=== PATIENT | male | born 1990 | race African-American/Black ===

== ENCOUNTER 2016-09-11 11:54 | Emergency (ER) | payer OTHER ==
[2016-09-11] MEDS ORDERED: IBUPROFEN 800 MG TABLET PO ONE (13:26)
[2016-09-11] MEDS ORDERED: CHERRY SYRUP 10 ML UDC PO ONE (13:26)
[2016-09-11] MEDS ORDERED: DEXAMETHASONE 10 MG/ML VIAL ONE (13:26)
[2016-09-11] MEDS: DEXAMETHASONE 10 MG/ML VIAL PO STA (13:29)
[2016-09-11] MEDS: IBUPROFEN 800 MG TABLET PO STA (13:29)
== END 2016-09-11 13:37 | disposition home or self-care (01) ==
DX: J02.8 Acute pharyngitis due to other specified organisms (principal); J06.9 Acute upper respiratory infection, unspecified; B97.89 Other viral agents as the cause of diseases classified elsewhere
CPT/HCPCS: 87070; 87430; 99283; A9270

== ENCOUNTER 2017-04-20 08:31 | Day surgery (SDC) | payer OTHER ==
[2017-04-20] MEDS ORDERED: LACTATED RINGERS 1,000 ML IV ONE ×2 (09:16→13:40)
[2017-04-20] MEDS ORDERED: ACETAMINOPHEN 1,000 MG/100 ML 100 ML IV ONE ×2 (09:22→13:10)
[2017-04-20] MEDS ORDERED: ceFAZolin 2 GM/50 ML 2 GM/50 ML BAG IV ONE ×2 (09:23→13:10)
[2017-04-20] MEDS ORDERED: BUPIVACAINE 0.25% PF 30 ML VIAL SUBQ ONE ×2 (12:02)
[2017-04-20] MEDS ORDERED: ONDANSETRON 4 MG/2 ML VIAL IVP ONE (13:10)
[2017-04-20] MEDS ORDERED: PROPOFOL 200 MG/20 ML VIAL IVP ONE (13:10)
[2017-04-20] MEDS ORDERED: METOCLOPRAMIDE 10 MG/2 ML VIAL IVP ONE (13:10)
[2017-04-20] MEDS ORDERED: DEXAMETHASONE 4 MG/ML VIAL IVP ONE (13:10)
[2017-04-20] MEDS ORDERED: KETOROLAC 30 MG/ML VIAL IVP ONE (13:10)
[2017-04-20] MEDS ORDERED: fentaNYL 100 MCG/2 ML VIAL IVP ONE (13:10)
[2017-04-20] MEDS ORDERED: LIDOCAINE-MPF 2% 5 ML VIAL IM ONE (13:10)
[2017-04-20] MEDS: fentaNYL 100 MCG/2 ML VIAL ONE ×2 (13:25→13:33)
[2017-04-20] MEDS ORDERED: oxyCODONE 5 MG TABLET ONE (14:10)
[2017-04-20 14:42] VITALS: BP 140/88
--- NOTE | 2017-04-23 10:34 | OPERATIVE REPORT ---
DATE OF SURGERY: 04/20/2017 00:00:00 [facility] PREOPERATIVE DIAGNOSIS: Right Achilles tendon rupture. POSTOPERATIVE DIAGNOSIS: Right Achilles tendon rupture. OPERATIONS PERFORMED: Right open Achilles tendon repair. PRIMARY SURGEON: Shanae Madrigal MD ANESTHESIOLOGIST: Neil Yee MD CIRCULATING NURSES 1. Patricia Guillory, KENZIE 2. Mehreen Zambrnao RN 3. Radha Bennett RN BOILER CONTROL ROOM OPERATOR: Ruma Ortiz. ANESTHESIA: General via LMA. INTRAVENOUS FLUIDS: 300 mL of lactated Ringer's. ESTIMATED BLOOD LOSS: Less than 5 mL. TOURNIQUET: To right thigh at 250 mmHg for 71 minutes. ANTIBIOTICS: Ancef 2 grams IV. IMPLANTS: #2 FiberWire suture x2. COMPLICATIONS: None. SPECIMENS: None. INDICATIONS: This is a 27-year-old male who was playing basketball on 14 April 2017, when he suddenly fell to the ground and then was unable to ambulate. An ultrasound that were consistent with a complete right Achilles tendon rupture. The risks, benefits, indications, and expectations of treatment options were discussed with the patient. The risks of surgery to include, but not limited to infection, bleeding, damage to neurovascular structures, wound complications, the need for additional surgery, persistent or worsened pain, recurrent tendon tears or tendon rupture, decreased range of motion or stiffness of the ankle, deep vein thrombosis, pulmonary embolism, loss of limb, and loss of life were discussed with the patient. All questions were answered. The patient elected to proceed with surgery, and informed consent was obtained. DESCRIPTION OF PROCEDURE: The patient was met in the preoperative hold area on the day of surgery, where we confirmed that we had the correct patient, planned to do the correct procedure, and had the correct extremity, which was the right lower extremity, identified. Prior to the patient receiving any medications, the operative extremity was initialed by the surgeon. The patient was then brought back to the operating room in stable condition and placed prone onto the operating room table. While he was in the prone position, general anesthesia was induced, and an LMA was placed. The patient had an SCD on the nonoperative leg prior to the induction of anesthesia. All bony prominences were well padded, and we ensured that the patient was in anatomic position. The right lower extremity was then prepped and draped in the usual sterile fashion. After final draping, additional ChloraPrep was utilized on the operative site. Three minutes were allowed to elapse to enable the ChloraPrep to dry. We held a surgical time-out, where we confirmed that we had the correct patient, planned to do the correct procedure, and had the correct extremity, which was the right lower extremity, identified. We also confirmed that the patient received preoperative antibiotics, that all necessary gear was in the room and confirmed sterile, and that no members of the operative team had any concerns. I began by exsanguinating the right lower extremity and inflating the tourniquet to 250 mmHg. On closer examination of the patient's skin about the Achilles tendon, there was a small horizontal scar in the crease above his calcaneus consistent with a prior surgery, although the patient did not report any history of this. Secondary to this scar, the decision was made to make an incision that incorporated the scar such that it was a Z-shaped incision, with the inferior-most limb on the medial aspect of the Achilles tendon and the superior limb on the lateral aspect. After sharply incising the skin, we utilized cautery through the subcuticular layer to maintain hemostasis. We then identified the sural nerve on the lateral aspect of the Achilles tendon and took care to dissect this out and protect this throughout the case. Immediately on getting through the subcutaneous layer, a significant amount of hematoma was visualized. The paratenon, where it was intact, was sharply incised in line with the Achilles tendon and then elevated from the tendon itself. There was a complete tendon rupture approximately 3 cm proximal to the calcaneus. The distal 2 cm of the remaining distal Achilles stump as well as 3 cm from the tear proximally were of very poor quality, appearing as mop ends. The hematoma was thoroughly irrigated out of the wound; #2 FiberWire was then used to whipstitch both ends of the Achilles tendon. A free needle was then used to pass the FiberWire sutures through the opposite end of the Achilles tendon in a gift-box type suture configuration. The foot was then fully plantar-flexed, and the FiberWire sutures were tied, such that the Achilles tendon ends were approximated to each other. We then thoroughly irrigated the wound. The paratenon was then closed utilizing 3-0 Vicryl in a running fashion. The subcuticular layer was closed utilizing 2- 0 Vicryl in an interrupted fashion, and the skin was closed utilizing 3-0 nylon in a horizontal mattress fashion. Marcaine 0.25% 15 mL without epinephrine was then injected about the incision for local analgesia. The wound was then dressed with sterile Xeroform, plain gauze, and Webril. The patient was then placed into a dorsal slab splint, such that his foot remained maximally plantar- flexed. All sponge counts and needle counts were correct at the conclusion of the case. The patient was awakened from anesthesia and transferred to a supine position on the [facility]. POSTOPERATIVE PLAN: The patient will remain in his postoperative splint nonweightbearing for 2 weeks. After 2 weeks, he will follow up in our clinic, at which time we will transition him to a Cam boot with four 1/2-inch heel lifts. Report edited and signed 04/23/2017 by Shanae Madrigal MD. JOB #: [id number] EXT JOB #:[id number] MTDAngela
== END 2017-04-20 08:32 | disposition home or self-care (01) ==
LOC: SDS 08:31
PROVIDERS: ATTEND Orthopaedic Surgery
PROC: 0LQN0ZZ Repair Right Lower Leg Tendon, Open Approach (ICD-10-PCS; principal; 2017-04-20 11:00)
DX: S86.011A Strain of right Achilles tendon, initial encounter (principal); Y93.67 Activity, basketball
CPT/HCPCS: 27650; A9270; J0131; J0690; J7120

== ENCOUNTER 2019-01-07 21:15 | Emergency (ER) | payer OTHER ==
--- NOTE | 2019-01-07 22:02 | ED Physician Documentation ---
PD HPI UPPER EXT INJURY - Stated complaint Stated Complaint: JET FUEL ON CAST - Chief complaint Chief Complaint: Wound - History obtained from History obtained from: Patient - History of Present Illness Location: Left, Wrist, Hand Type of injury: Other (He had a boxer's fracture about 2 and half weeks ago and has a cast on his hand. He is supposed to have it on for 2 more weeks. [place] got some dense fuel spilled onto the cast this evening. He is hoping to get the cast removed or changed so it does not staying contact with the skin.) Where injury occurred: Work Timing - onset: How many hours ago (1), Today Timing - details: Abrupt onset Associated symptoms: No: Weakness, Numbness Recently seen: Clinic (Ortho clinic for boxers fracture.) Review of Systems Skin: denies: Rash, Lesions Neurologic: denies: Focal weakness, Numbness PD PAST MEDICAL HISTORY - Past Medical History Cardiovascular: None Respiratory: None Endocrine/Autoimmune: None GI: None : None HEENT: Other Psych: None Musculoskeletal: Other - Past Surgical History Past Surgical History: No - Present Medications Home Medications: Ambulatory Orders Medication Instructions Recorded Confirmed No Known Home Medications 01/07/19 01/07/19 - Allergies Allergies/Adverse Reactions: Allergies Allergy/AdvReac Type Severity Reaction Status Date / Time No Known Drug Allergies Allergy Verified 01/07/19 21:22 - Social History Does the pt smoke?: No Smoking Status: Never smoker Does the pt drink ETOH?: No Does the pt have substance abuse?: No - Immunizations Immunizations are current?: Yes - POLST Patient has POLST: No PD ED PE NORMAL - Vitals Vital signs reviewed: Yes - General General: Alert and oriented X 3, No acute distress, Well developed/nourished - Derm Derm: Normal color, Warm and dry - Extremities Extremities: Other (left wrist in short arm cast. Has some smell of jet fuel.) Results - Vitals Vitals: Vital Signs - 24 hr 01/07/19 01/07/19 21:17 23:16 Temperature 36.3 C L Heart Rate 96 82 Respiratory 16 16 Rate Blood Pressure 152/105 H 144/78 H O2 Saturation 97 100 Oxygen O2 Source Room air Procedures - Splint (location) left ulnar gutter Splint applied by: Tech Type of splint: Fiberglass Other: Patient tolerated well, No complications, Neurovascular intact PD MEDICAL DECISION MAKING - ED course Complexity details: considered differential (He would like to have the cast off that has the jet fuel onto it. He is concerned about its effect on the skin. I cut the cast off myself and the tech applied an ulnar gutter splint. We did not have casting tape available in the ER. [place] d/w patient Departure - Departure Disposition: 01 Home, Self Care Clinical Impression: Problem with fiberglass cast Condition: Stable Record reviewed to determine appropriate education?: Yes Comments: Go to the orthopedist office tomorrow to have them replaced the cast. Keep the splint on for now. Discharge Date/Time: 01/07/19 23:18
[2019-01-07 23:17] VITALS: BP 144/78
== END 2019-01-07 23:18 | disposition home or self-care (01) ==
LOC: ED 21:15
DX: S62.92XD Unspecified fracture of left hand, subsequent encounter for fracture with routine healing (principal); X58.XXXD Exposure to other specified factors, subsequent encounter
CPT/HCPCS: 99281; 99282